=== PATIENT | female | born 1940 | race Caucasian/White ===

== ENCOUNTER → 2017-07-15 | Day surgery (SDC) | payer BC ==
[2017-07-09 11:19] VITALS: Ht 167.6 cm; Wt 66.8 kg
[~2017-07-15] VITALS: Ht 167.6 cm; Wt 66.8 kg
[~2017-07-15] MED LIST: ATROPINE SULFATE 0.1 MG/ML 5ML SYR IV PRN; BUPIVACAINE/EPINEPHRINE 0.5% MPF 1:200,000 30 ML VIAL ONE; CALCTAB30 PO; CLINDAMYCIN PHOS 150 MG/ML 2 ML VIAL IV SCH; DEXAMETHASONE SOD INJ 4 MG/ML VIAL ONE; EpHEDrine SULFATE INJ 50 MG/ML AMP IV PRN; FENTANYL CITRATE INJ 50 MCG/1 ML 2 ML VIAL ONE; HYDR-5688 PO; HYDROCODONE/ACETAMIN 5/325MG TAB PO PRN; LACTATED RINGER'S 1000ML 1,000 ML IV SCH; LIDOCAINE HCL 2% 2 ML VIAL (20MG/ML) ONE; MIDAZOLAM HCL 1 MG/ML 2ML VIAL ONE; MULT-506 PO; ONDANSETRON INJ 2 MG/ML 2 ML VIAL IV PRN; ONDANSETRON INJ 2 MG/ML 2 ML VIAL ONE; PROPOFOL IV EMULSION 10 MG/ML 20 ML VIAL IV ONE; SODIUM CHLORIDE 0.9% 1000ML 1,000 ML IV SCH
--- NOTE | 2017-07-15 07:34 | History & Physical Bridge Note ---
H&P Re-Evaluation Bridge Note: I have examined the patient, reviewed the History & Physical and in the interval since the performance of the History & Physical I have noted the following changes of clinical significance: No changes noted
--- NOTE | 2017-07-15 08:47 | [facility] Post Operative Brief Note ---
Immediate Operative Summary Operative Date Jul 15, 2017. Pre-Operative Diagnosis Right groin lymphadenopathy Post-Operative Diagnosis same Procedure(s) Performed Right Inguinal Lymph Node Excision Surgeon Dr. Kaur Critical Systems Technician Surgeon(s) Aakash Nelson Estimated Blood Loss 3 cc Findings Consistent with Post-Op Diagnosis Specimens right inguinal lymph nodes Drains None Anesthesia Type General Complication(s) none Disposition Disposition: Recovery Room / PACU
--- NOTE | 2017-07-15 09:09 | Discharge Instructions-SurgCtr ---
Discharge Instructions Date of Service Jul 15, 2017. Visit Reason for Visit: Right Groin Lymphadenopathy Discharge Discharge Diagnosis / Problem: Right Groin Lympadenopathy Discharge Goals Goal(s): Decrease discomfort, Improve function Activity Recommendations Activity Limitations: as noted below Lifting Limitations: no more than 10 pounds Exercise/Sports Limitations: until after follow-up appointment May Resume Sexual Activity: after follow-up appointment Shower/Bathe: tomorrow Driving or Machine Use: resume 1 day after discharge Anesthesia . Post Anesthesia Instructions: If you have had General Anesthesia or IV Sedation: * Do not drive today. * Resume driving when surgeon permits. * Do not make important decisions or sign legal documents today. * Call surgeon for: 1. Temperature elevations greater than 101 degrees F. 2. Uncontrollable pain. 3. Excessive bleeding. 4. Persistent nausea and vomiting. 5. Medication intolerance (nausea, vomiting or rash). * For nausea and vomiting use only clear liquids such as: tea, soda, bouillon until nausea subsides, then gradually increase diet as tolerated. * If you have any concerns or questions, call your surgeon's office. If physician is unavailable and it is an emergency, call 911 or go to the nearest emergency room. . Instructions / Follow-Up Instructions / Follow-Up Please follow-up with Dr. Kaur in the [facility] in 1-2 weeks. Please call the office at [phone] to make an appointment if you do not have one already. Please call the office with any questions or concerns. Diet Recommendations Home Diet: no limitations Procedures Procedures Performed: Right Inguinal Lymph Node Excision Pending Studies Studies pending at discharge: yes List of pending studies: Pathology report. Medical Emergencies . Who to Call and When: Medical Emergencies: If at any time you feel your situation is an emergency, please call 911 immediately. . Non-Emergent Contact Non-Emergency issues call your: Primary Care Provider, Surgeon Call Non-Emergent contact if: temperature is above 101.5, your pain is not controlled, wound has increased drainage, wound has increased redness . . "Provider Documentation" section prepared by Gricelda Nelson. . [place] Drug Monitoring Program Search Results: patient reviewed within database, no issues identified
--- NOTE | 2017-07-15 09:12 | Medical Student: [facility] ---
Immediate Operative Summary Operative Date Jul 15, 2017. Pre-Operative Diagnosis right groin lymphadenopathy Post-Operative Diagnosis right groin lymphadenopathy Procedure(s) Performed Excision of right inguinal lymph nodes Surgeon Dr. Kaur Refractory Repairer Surgeon(s) MARSHALL Nelson Estimated Blood Loss 3 ML Findings Multiple enlarged, dark pigmented lymph nodes excised. Worrisome with history of melanoma. Specimens multiple lymph nodes (specimen A) Drains none Anesthesia general Complication(s) None Disposition Recovery Room / PACU
--- NOTE | 2017-07-15 09:15 | [facility] Operative Report ---
Operative Report Operative Date Jul 15, 2017. Pre-Operative Diagnosis Right groin lymphadenopathy Post-Operative Diagnosis same Procedure(s) Performed Right Inguinal Lymph Node Excision Surgeon Dr. Kaur Dip Painter Surgeon(s) Aakash Nelson Estimated Blood Loss 3 cc Findings right groin adenopathy Specimens right inguinal lymph nodes Anesthesia general Complication(s) None Disposition Recovery Room / PACU Description of Procedure After informed consent was obtained the patient was taken the operating room and placed in supine position. After successful placement of the laryngeal mask airway the right groin was shaved and sterilely prepped and draped in usual fashion. A horizontal incision was made directly over the palpable mass with a 15 blade scalpel and carried down through the soft tissue using electrocautery. The mass itself was rather superficial and we encountered it readily. We used traction countertraction small amounts electrocautery and blunt dissection to come around the lesion in 360. It appeared to be a conglomerate of lymph nodes. There was a dark hue to it somewhat worrisome considering her history of melanoma. Nonetheless we were able to cauterize the pedicle and eventually remove the entire mass in one piece. It was rather large and measured probably 5 cm. It was irregular and firm. We irrigated the wound thoroughly. There was adequate hemostasis. We closed the wound in multiple layers using 2-0 Vicryl for deep layers 3-0 Vicryl for mid layers and 4 -0 Monocryl for skin. Marcaine was injected around the incision for postoperative analgesia and skin glue used as a dressing the patient was awaken extubated and transferred recovery in stable condition. My physician's library clerical assistant was present throughout the entire case. She helped with prepping the patient with retraction throughout the case she helped with wound closure and dressing placement I attest to the content of the Intraoperative Record and any orders documented therein. Any exceptions are noted below.
[2017-07-15] MEDS: FENTANYL CITRATE INJ 50 MCG/1 ML 2 ML VIAL IV PRN ×2 (09:29→09:54)
[2017-07-15 10:30] VITALS: TEMP 36.7
[2017-07-15 11:00] VITALS: BP 134/80; PULSE 69; O2SAT 98
--- NOTE | 2017-07-15 11:00 | Anesthesia Progress Nt - [facility] ---
Anesthesia Post Op Note Date & Time Jul 15, 2017 at 11:00 Vital Signs Pain Intensity: 2 Vital Signs Past 12 Hours Date Time Temp Pulse Resp B/P (MAP) Pulse Ox O2 Delivery O2 Flow Rate FiO2 07/15/17 10:30 36.7 62 16 120/72 (88) 95 Room Air 07/15/17 10:07 70 14 07/15/17 10:07 69 14 98 07/15/17 10:06 148/74 07/15/17 10:02 72 16 96 07/15/17 10:02 73 16 07/15/17 10:01 72 9 07/15/17 10:01 73 9 145/73 96 07/15/17 09:56 64 11 146/68 100 07/15/17 09:56 64 11 07/15/17 09:51 70 18 139/74 100 07/15/17 09:51 68 18 07/15/17 09:50 36.7 68 12 139/74 99 Room Air 07/15/17 09:46 67 11 146/75 100 07/15/17 09:46 68 11 07/15/17 09:41 71 16 07/15/17 09:41 72 16 143/72 100 07/15/17 09:36 70 14 07/15/17 09:36 70 14 157/80 100 07/15/17 09:31 68 11 07/15/17 09:31 68 11 138/74 100 07/15/17 09:26 71 8 136/74 100 07/15/17 09:26 72 8 07/15/17 09:21 75 11 07/15/17 09:21 77 11 131/72 100 07/15/17 09:16 74 25 122/75 100 07/15/17 09:16 73 25 07/15/17 09:11 77 22 07/15/17 09:11 77 22 100 07/15/17 09:10 128/70 07/15/17 09:06 77 16 128/71 99 07/15/17 09:06 77 16 07/15/17 09:06 36.1 73 12 128/71 99 Diffusion Mask 6 07/15/17 07:06 36.6 75 18 131/82 (98) 94 Room Air Notes Mental Status: alert / awake / arousable, participated in evaluation Pt Amnestic to Procedure: Yes Nausea / Vomiting: adequately controlled Pain: adequately controlled Airway Patency, RR, SpO2: stable & adequate BP & HR: stable & adequate Hydration State: stable & adequate Anesthetic Complications: no major complications apparent
== END ==
LOC: X.SURG 06:48
PROVIDERS: ATTEND Surgery
DX: C77.4 Secondary and unspecified malignant neoplasm of inguinal and lower limb lymph nodes (principal); Z85.820 Personal history of malignant melanoma of skin; R59.0 Localized enlarged lymph nodes; M19.90 Unspecified osteoarthritis, unspecified site; Z86.19 Personal history of other infectious and parasitic diseases; Z80.3 Family history of malignant neoplasm of breast; Z88.0 Allergy status to penicillin; Z88.2 Allergy status to sulfonamides

== ENCOUNTER → 2017-08-13 | Outpatient (CLI) | payer BC ==
[~2017-08-13] MED LIST changes: -ATROPINE SULFATE 0.1 MG/ML 5ML SYR IV PRN; -BUPIVACAINE/EPINEPHRINE 0.5% MPF 1:200,000 30 ML VIAL ONE; -CLINDAMYCIN PHOS 150 MG/ML 2 ML VIAL IV SCH; -DEXAMETHASONE SOD INJ 4 MG/ML VIAL ONE; -EpHEDrine SULFATE INJ 50 MG/ML AMP IV PRN; -FENTANYL CITRATE INJ 50 MCG/1 ML 2 ML VIAL ONE; -HYDR-5688 PO; -HYDROCODONE/ACETAMIN 5/325MG TAB PO PRN; -LACTATED RINGER'S 1000ML 1,000 ML IV SCH; -LIDOCAINE HCL 2% 2 ML VIAL (20MG/ML) ONE; -MIDAZOLAM HCL 1 MG/ML 2ML VIAL ONE; -ONDANSETRON INJ 2 MG/ML 2 ML VIAL IV PRN; -ONDANSETRON INJ 2 MG/ML 2 ML VIAL ONE; -PROPOFOL IV EMULSION 10 MG/ML 20 ML VIAL IV ONE; -SODIUM CHLORIDE 0.9% 1000ML 1,000 ML IV SCH
--- NOTE | 2017-08-13 13:07 | DIAGNOSTIC IMAGING REPORT ---
PET/CT WHOLE-BODY CLINICAL HISTORY: MELANOMA COMPARISON STUDY: No previous studies for comparison. FINDINGS: The patient was injected with 10.4 mCi of F 18 labeled FDG. Findings standard induction phase, PET/CT scanning was performed from the skull apex the upper thigh region. An additional acquisition of both legs was acquired. Activity within the head and neck is felt to be physiologic. Activity within the chest is felt to be physiologic. There is no pathologic hepatic or adrenal activity. There is physiologic urinary tract and bowel activity. There is no pathologic ellen activity within the abdomen. Within the pelvis, there is mild increased FDG activity fusing to postoperative changes in the right inguinal region. There is no pathologic skeletal activity. A separate acquisition of both lower legs was performed. There is no pathologic leg activity. Incidental note is made of bilateral thyroid nodules measuring up to 17 mm in diameter. These are not significantly FDG avid IMPRESSION: 1. Multinodular thyroid gland 2. No evidence of FDG avid metastatic disease Electronically signed by: Brain Chang M.D. 08/13/2017 1:06 PM Dictated Date/Time: 08/13/2017 12:59 PM
== END | disposition home or self-care (01) ==
LOC: C.PET 09:40
PROVIDERS: ATTEND Internal Medicine Hematology & Oncology
DX: C43.71 Malignant melanoma of right lower limb, including hip (principal); E04.2 Nontoxic multinodular goiter

== ENCOUNTER → 2018-01-19 | Outpatient (CLI) | payer BC ==
--- NOTE | 2018-01-19 13:56 | DIAGNOSTIC IMAGING REPORT ---
PET/CT FULL BODY HISTORY: Mass MALIGNANT NEOPLASM, RT LOWER LIMB, INCLUDING HIP. Melanoma. TECHNIQUE: PET/CT was performed from the base of the skull through the pelvis following the intravenous administration of 15.4 mCi of F18-FDG. Non-contrast CT imaging was performed over the same range without breath-hold for attenuation correction of PET images and anatomic correlation, but not for primary interpretation as it is not of standard diagnostic quality. CT DOSE: COMPARISON: 08/13/2017 FINDINGS: HEAD AND NECK: There is no FDG-avid disease or significant lymphadenopathy in the imaged portions of the head and the neck. CHEST: There is no FDG-avid disease in the chest. There is no axillary, mediastinal, or hilar lymphadenopathy. There is no pleural or pericardial effusion. There is no air-space disease or suspicious lung nodule. ABDOMEN/PELVIS: Below the diaphragm, tracer is distributed physiologically in the gastrointestinal and genitourinary tracts. There is no significant lymphadenopathy and no FDG-avid disease. MUSCULOSKELETAL: There is no FDG-avid or destructive bone lesion. Minimal increase in activity lateral aspect right lower leg confined to the subcutaneous fat. No well-defined lesion by CT criteria is identified at this site with only a trace amount of infiltrative change. IMPRESSION: There is no definite evidence of recurrent FDG-avid disease. Normal study. No change from the prior exam. Minimal increase in activity within the subcutaneous fat lateral to the right lower leg. This is in the absence of a significant lesion on the fused CT exam which shows only a trace amount of increased subcutaneous fat density. Clinical correlation at this site is required. The above report was generated using voice recognition software. It may contain grammatical, syntax or spelling errors. Electronically signed by: Mainor Lambert M.D. 01/19/2018 1:54 PM Dictated Date/Time: 01/19/2018 1:44 PM
== END | disposition home or self-care (01) ==
LOC: C.PET 09:15
PROVIDERS: ATTEND Nurse Practitioner Family
DX: C43.71 Malignant melanoma of right lower limb, including hip (principal)